=== PATIENT | female | born 1940 | race Caucasian/White ===

== ENCOUNTER 2018-10-07 07:50 | Outpatient (CLI) | payer MEDICARE ==
[2010-06-28 08:29] VITALS: BMI 25.8
== END 2018-10-07 23:59 | disposition home or self-care (01) ==
LOC: D.MAMMO 07:50
DX: Z12.31 Encounter for screening mammogram for malignant neoplasm of breast (principal)

== ENCOUNTER 2020-07-27 16:30 | Outpatient (CLI) | payer OTHER ==
[2010-06-28 08:29] VITALS: BMI 25.8
== END 2020-07-27 23:59 | disposition home or self-care (01) ==
LOC: D.MAMMO 16:30
PROVIDERS: ATTEND Internal Medicine
DX: Z12.31 Encounter for screening mammogram for malignant neoplasm of breast (principal)